=== PATIENT | female | born 1950 | race Caucasian/White ===

== ENCOUNTER 2017-09-17 21:08 | Emergency (ER) | payer OTHER ==
[~2017-09-17] VITALS: Ht 162.6 cm; Wt 88.4 kg
[~2017-09-17 21:08] MED LIST: AMBIEN5 MG PO; ASPIRIN EC325 MG PO; ATIVAN0.5 MG PO; CELECOXIB200 MG PO; DICYCLOMINE HCL10 MG PO; HYDROMORPHONE HC2 MG PO; IRON325 M1 PO; LEVOTHYROXINE75 MCG PO; LORAZEPAM1 MG PO; METAMUCIL PACKE1 PKT PO; MOTRIN600 MG PO; MOTRIN800 MG PO; PRINIVIL10 MG PO; TYLENOL EXTRA500 MG PO
[2017-09-17 21:33] LABS: HEMATOCRIT 41.6 % (36.0-46.0); HEMOGLOBIN 13.7 G/DL (11.9-15.5); MCH 31.2 PG (29.0-34.0); MCHC 32.9 G/DL (30.0-36.0); MCV 94.8 FL (83-99); PLATELET COUNT 238 K/uL (156-360); RBC DIS.WIDTH-CV 12.7 % (11.8-14.6); RBC DIS.WIDTH-SD 43.9 % (39-53); RED BLOOD COUNT 4.39 M/uL (3.80-5.20); WHITE BLOOD COUNT 8.6 K/uL (4.1-10.2)
[2017-09-17 22:13] LABS: CHLORIDE 101 mEq/L (99-109); POTASSIUM 4.4 mEq/L (3.7-5.4); SODIUM 138 mEq/L (136-147)
[2017-09-17 22:15] LABS: GLUCOSE 113 mg/dL (70-99)
[2017-09-17 22:19] LABS: CREATININE 0.8 mg/dL (0.6-1.3); GFR ESTIMATE (CALCULATED) > 59 mL/min/; UREA NITROGEN (BUN) 21 mg/dL (9-23)
[2017-09-17 23:44] LABS: TROP-I INTERPRETATION NEGATIVE; TROPONIN-I < 0.01 ng/mL (0.0-0.30)
[2017-09-18 00:47] VITALS: BP 154/64
== END 2017-09-18 00:47 | disposition left against medical advice (07) ==
LOC: EME 21:08
DX: G45.9 Transient cerebral ischemic attack, unspecified (principal); G31.9 Degenerative disease of nervous system, unspecified; K21.9 Gastro-esophageal reflux disease without esophagitis; I10 Essential (primary) hypertension; F32.9 Major depressive disorder, single episode, unspecified; Z87.442 Personal history of urinary calculi; Z96.651 Presence of right artificial knee joint; Z90.49 Acquired absence of other specified parts of digestive tract; Z88.5 Allergy status to narcotic agent
CPT/HCPCS: 70450; 71046; 80048; 84484; 85027; 93005; 99281; 99284